=== PATIENT | female | born 1965 | race Caucasian/White ===

== ENCOUNTER 2021-06-20 11:48 | Emergency (ER) | payer OTHER, SELFPAY ==
[2021-06-20 11:58] VITALS: BP 159/78; PULSE 96; RESP 20; TEMP 37.9; O2SAT 100
--- NOTE | 2021-06-20 12:22 | ED.GENADULT ---
HPI - General Adult General Chief complaint: Skin/Abscess/Foreign Body Stated complaint: Facial Swelling Time Seen by Provider: 06/20/21 12:10 Source: patient and RN notes reviewed History of Present Illness HPI narrative: Patient is a 55-year-old female who presents the urgent care with complaints of right-sided painful facial swelling. 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 States that she was unable to get into her neurologist and her PCP. States that they were supposed to call her in meloxicam and have not . Patient states his symptoms started 2 days ago and she has been taking Tylenol. Patient states that steroids tend to help well with the swelling and pain. Patient is tearful but otherwise no acute distress noted. Patient aware of the plan of care. Some parts of this dictation were generated by voice recognition software and may contain typographical and/or grammatical inaccuracies. Related Data Home Medications Medication Instructions Recorded Confirmed colestipol 1 g PO BID 06/20/21 06/20/21 famotidine [Heartburn Relief 10 mg PO BID 06/20/21 06/20/21 (famotidine)] Allergies Allergy/AdvReac Type Severity Reaction Status Date / Time No Known Allergies Allergy Verified 06/20/21 12:02 Review of Systems Review of Systems: CONSTITUTIONAL: Denies fever, chills, or sweats. EYES: Denies visual changes, redness, or discharge. ENT: Denies rhinorrhea, congestion, sore throat, or otalgia. Reports of moderate and painful right-sided facial swelling CARDIOVASCULAR: Denies chest pain, palpitations, or edema. RESPIRATORY: Denies cough or dyspnea. GASTROINTESTINAL: Denies abdominal pain, nausea, vomiting, or diarrhea. GENITOURINARY: Denies dysuria or hematuria. SKIN: Denies rash or itching. MUSCULOSKELETAL: Denies back pain, joint pain, or myalgia. NEUROLOGIC: Denies headache, numbness, or weakness. All other systems reviewed are negative, except as documented in HPI. PMFSH Comments At the time of my signature, I reviewed and agree with the nursing past medical, surgical, social, and family history. There is no relevant family history pertinent to the patient complaint. Exam Narrative: GENERAL: This is a well-nourished, well-developed patient. Tearful HEAD: normocephalic, atraumatic. Moderate right-sided facial swelling with history of arteritis with moderate tenderness on palpation EYES: PERRL. Sclera clear/white. Vision is grossly intact. EARS: External ears normal, auditory canals clear and without drainage, TMs normal without perforation. Hearing grossly intact. NOSE: External nose normal with no obvious nasal discharge, nares without redness, no rhinorrhea. THROAT: Mucous membranes moist, posterior pharynx clear. DENTAL: Normal dentition without notable abscess or carious lesions NECK: Neck supple, non-tender without lymphadenopathy SKIN: warm, intact with no suspicious lesions or rash, good texture and turgor. NEURO: awake, alert, and oriented to person, place and time. There were no obvious focal neurologic abnormalities. EXTREMITIES: No clubbing, cyanosis, or edema. Course Course Level of Care: Express Care Visit Vital Signs Vital signs: Vital Signs Temperature 100.2 F H 06/20/21 11:58 Pulse Rate 96 06/20/21 11:58 Respiratory Rate 20 06/20/21 11:58 Blood Pressure 159/78 H 06/20/21 11:58 Pulse Oximetry 100 06/20/21 11:58 Temperature 100.2 F H 06/20/21 11:58 Pulse Rate 96 06/20/21 11:58 Respiratory Rate 20 06/20/21 11:58 Blood Pressure 159/78 H 06/20/21 11:58 Pulse Oximetry 100 06/20/21 11:58 Reviewed-patient is informed that they may have pre-hypertension or hypertension based on a blood pressure reading in the department. I recommend the patient call the primary care provider listed on their discharge instructions or a physician of their choice th
[2021-06-20] MEDS: predniSONE 20 MG TABLET 60 MG PO (12:27)
== END 2021-06-20 12:32 | disposition home or self-care (01) ==
PROVIDERS: Emergency Provider Nurse Practitioner Family
DX: I77.6 Arteritis, unspecified (principal); M19.90 Unspecified osteoarthritis, unspecified site; M81.0 Age-related osteoporosis without current pathological fracture
CPT/HCPCS: 99213; G0463; J7512